=== PATIENT | female | born 1980 | race Caucasian/White ===

== ENCOUNTER 2018-07-10 20:55 | Emergency (ER) | payer SELFPAY ==
[~2018-07-10] VITALS: Ht 152.4 cm; Wt 59.1 kg
[2018-07-10 21:52] VITALS: BP 145/85; PULSE 74; RESP 16; Ht 152.4 cm; Wt 59.1 kg
== END 2018-07-11 02:04 | disposition left against medical advice (07) ==
LOC: FTE 20:55
DX: Z53.21 Procedure and treatment not carried out due to patient leaving prior to being seen by health care provider (principal)
CPT/HCPCS: 93005